=== PATIENT | male | born 1965 | race Caucasian/White ===

== ENCOUNTER 2016-12-21 12:56 | Emergency (ER) | payer SELFPAY ==
--- NOTE | 2016-12-21 15:37 | RAD ---
TWO VIEWS LEFT FOREARM: Indication: Left forearm injury. FINDINGS: There is a comminuted dorsally impacted distal radius fracture. There is a comminuted nondisplaced ulnar styloid process fracture. Radiocapitellar alignment appears within normal limits. IMPRESSION: Comminuted left distal forearm fracture. POS: [facility]
--- NOTE | 2016-12-21 15:39 | RAD ---
THREE VIEWS LEFT WRIST: Indication: Left wrist fracture. FINDINGS: There is a comminuted, dorsally impacted intraarticular distal radius fracture. There is a vertical split projecting between the scaphoid and lunate process of the articular surface of the distal rad ius. There is a comminuted and mildly displaced ulnar styloid process fracture. No additional frac tures were evident. Carpal alignment appears within normal limits. IMPRESSION: Distal radial and ulnar styloid process fracture. POS: [facility]
--- NOTE | 2016-12-21 15:43 | RAD ---
SINGLE VIEW OF THE PELVIS: Indication: Injury. Comparison: None. FINDINGS: Both hips appear within normal limits. Proximal femurs are normal. No acute fracture or subluxatio n is evident. IMPRESSION: No acute osseous abnormality. POS: [facility]
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
--- NOTE | 2016-12-21 16:04 | RAD ---
FOUR VIEWS OF THE LEFT KNEE: Indication: Injury. Comparison: None. FINDINGS: There is enthesopathic change involving the anterior aspect of the knee. There is mild joint capsul ar distention. No acute fracture subluxation is evident. IMPRESSION: Mild joint capsular distention. If there is concern for internal derangement, follow up MRI of the left knee may be helpful. POS: [facility]
== END 2016-12-21 15:25 | disposition home or self-care (01) ==
LOC: MADERS 12:56
DX: S52.502A Unspecified fracture of the lower end of left radius, initial encounter for closed fracture (principal); S52.612A Displaced fracture of left ulna styloid process, initial encounter for closed fracture; S83.92XA Sprain of unspecified site of left knee, initial encounter; E78.5 Hyperlipidemia, unspecified; E78.00 Pure hypercholesterolemia, unspecified; I10 Essential (primary) hypertension; F17.210 Nicotine dependence, cigarettes, uncomplicated; Z79.899 Other long term (current) drug therapy; V89.2XXA Person injured in unspecified motor-vehicle accident, traffic, initial encounter
CPT/HCPCS: 29125; 70450; 72170